=== PATIENT | female | born 1990 ===

== ENCOUNTER 2016-02-13 10:25 | Emergency (ER) | payer BC ==
[2016-02-13 11:21] VITALS: BP 129/76
--- NOTE | 2016-02-13 11:55 | UC ---
Ear Complaint HPI - HPI Summary HPI Summary: left ear pain since 399. Pt is 31 weeks . Is on Lovenox for MTHFR gene. Had preceding URI sxs. No blood or drainage from left ear. Prior hx ear tubes when young. Has decreased hearing and can feel fluid sloshing in her left ear. - History of Current Complaint Chief Complaint: UCEar Stated Complaint: EAR COMPLAINT Time Seen by Provider: 02/13/16 11:49 Hx Obtained From: Patient, Family/Transverse Abdominal Muscle Nurse - Hx Last Menstrual Period: 31 weeks on 02/13/16 ?: Yes Onset/Duration: Sudden Onset, Lasting Hours, Still Present Severity Initially: Moderate Severity Currently: Moderate Pain Intensity: 3 Pain Scale Used: 0-10 Numeric Aggravating Factors: Nothing Alleviating Factors: Heat Associated Signs/Symptoms: Positive: URI Symptoms Related History: Other (Noted In Comments) - - Allergies/Home Medications Allergies/Adverse Reactions: Allergies Allergy/AdvReac Type Severity Reaction Status Date / Time No Known Allergies Allergy Verified 02/13/16 11:10 Home Medications: Home Medications Aspirin [Aspirin Adult Low Dose] 81 mg PO DAILY 02/13/16 [History Confirmed 02/28] Enoxaparin Sodium [Lovenox] 30 mg SC DAILY 02/13/16 [History Confirmed 02/13/16] Ferrous Sulfate [Iron] 28 mg PO BID 02/13/16 [History Confirmed 02/13/16] Prenat Vit W/ Iron Carbonyl-Fe [Ob Complete/Dha] 1 cap PO DAILY 02/13/16 [ History Confirmed 02/13/16] PMH/Surg Hx/FS Hx/Imm Hx Previously Healthy: No Cardiovascular History Of: Denies: Deep Vein Thrombosis - clotting disorder MTHFR and Factor 5 Leiden - Surgical History Surgical History: Yes Surgery Procedure, Year, and Place: Ear tubes x 1, R shoulder, - Family History Known Family History: Negative: Diabetes - Social History Lives: With Family Alcohol Use: None Substance Use Type: None Smoking Status (MU): Never Smoked Tobacco Review of Systems Constitutional: Negative Skin: Negative Eyes: Negative ENT: Ear Ache, Nasal Discharge Respiratory: Negative Cardiovascular: Negative Gastrointestinal: Negative Genitourinary: Negative Motor: Negative Neurovascular: Negative Musculoskeletal: Negative Neurological: Negative Psychological: Negative All Other Systems Reviewed And Are Negative: Yes Physical Exam Triage Information Reviewed: Yes Appearance: Well-Appearing, Well-Nourished, Pain Distress, Other: - Vital Signs: Initial Vital Signs Temp 98 F 02/13/16 11:01 Pulse 114 02/13/16 11:01 Resp 14 02/13/16 11:01 BP 129/76 02/13/16 11:01 Pulse Ox 100 02/13/16 11:01 Eyes: Positive: Conjunctiva Clear ENT: Positive: Pharynx normal, TM bulging - left, TM dull - left, TM red - left Neck: Positive: Supple, Nontender, No Lymphadenopathy Respiratory: Positive: Lungs clear, Normal breath sounds, No respiratory distress Cardiovascular: Positive: RRR, No Murmur, Pulses Normal, Brisk Capillary Refill Abdomen Description: Positive: Nontender, Soft, Other: - Musculoskeletal: Positive: Strength Intact, ROM Intact Neurological: Positive: Alert, Muscle Tone Normal Psychological Exam: Normal Skin Exam: Normal Ear Complaint Course/Dx - Differential Dx/Diagnosis Differential Diagnosis/HQI/PQRI: Otitis Externa, Otitis Media, Perforated TM, URI Provider Diagnoses: left OM Discharge - Discharge Plan Condition: Stable Disposition: HOME Prescriptions: Amoxicillin (*) 875 mg PO BID #20 tab Patient Education Materials: Otitis Media (ED) Referrals: Marilou Plasencia MD [Primary Care Provider] - Additional Instructions: Your left ear was infected today. Follow up with your doctor or return to urgent care if you have any new or worsening symptoms.
== END 2016-02-13 12:03 | disposition home or self-care (01) ==
LOC: UCCORT 10:25
DX: O26.893 Other specified pregnancy related conditions, third trimester (principal); H66.92 Otitis media, unspecified, left ear; O99.283 Endocrine, nutritional and metabolic diseases complicating pregnancy, third trimester; E72.12 Methylenetetrahydrofolate reductase deficiency; O99.113 Other diseases of the blood and blood-forming organs and certain disorders involving the immune mechanism complicating pregnancy, third trimester; D68.51 Activated protein C resistance; Z79.01 Long term (current) use of anticoagulants; Z3A.31 31 weeks gestation of pregnancy
CPT/HCPCS: 99202; G0463